=== PATIENT | female | born 1985 | race Caucasian/White ===

== ENCOUNTER 2016-09-28 15:56 | Emergency (ER) | payer BC | END 2016-09-28 19:10 | disposition home or self-care (01) | LOC: ER1 15:56 | DX: S39.012A Strain of muscle, fascia and tendon of lower back, initial encounter (principal); L02.31 Cutaneous abscess of buttock; F17.210 Nicotine dependence, cigarettes, uncomplicated; Z88.2 Allergy status to sulfonamides; X58.XXXA Exposure to other specified factors, initial encounter | CPT/HCPCS: 72131; 81001; 99284 ==

== ENCOUNTER → 2021-05-14 | Outpatient (CLI) | payer BC, OTHER | LOC: KOH-I 10:23 | DX: R50.9 Fever, unspecified (principal); R05.1 Acute cough; M79.18 Myalgia, other site; Z20.822 Contact with and (suspected) exposure to COVID-19 | CPT/HCPCS: 71046 ==

== ENCOUNTER → 2021-12-10 | Outpatient (CLI) | payer BC, OTHER ==
[2021-12-10 09:52] LABS: HEMOGLOBIN 13.4 gm/dl (12.3-15.3); RED BLOOD COUNT 4.53 M/UL (4.00-5.10)
[2021-12-10 10:19] LABS: BUN/CREATININE RATIO 20 (0-10)
[2021-12-12 12:15] LABS: CHOLESTEROL, TOTAL 228 mg/dL (100-199); HDL SIZE 8.6 nm (>=9.2); HDL-C 51 mg/dL (>39); HDL-P (TOTAL) 38.1 umol/L (>=30.5); LARGE HDL-P 2.9 umol/L (>=4.8); LARGE VLDL-P 10.7 nmol/L (<=2.7); LDL SIZE 20.7 nm (>20.5); LDL SIZE 20.7 nm (>=20.8); LDL-C 139 mg/dL (0-99); LDL-P 1846 nmol/L (<1000); LP-IR SCORE 89 (<=45); SMALL LDL-P 857 nmol/L (<=527); TRIGLYCERIDES 210 mg/dL (0-149); VLDL SIZE 57.6 nm (<=46.6)
== END ==
LOC: LAB 09:21
PROVIDERS: Nurse Practitioner
DX: M25.561 Pain in right knee (principal); M25.562 Pain in left knee; Z88.1 Allergy status to other antibiotic agents; Z88.2 Allergy status to sulfonamides; I10 Essential (primary) hypertension; F41.1 Generalized anxiety disorder; R73.09 Other abnormal glucose
CPT/HCPCS: 36415; 73564; 80053; 80061; 83036; 83704; 84443; 84550; 85025; 85652; 86038; 86140; 86431